=== PATIENT | female | born 1970 | race Caucasian/White ===

== ENCOUNTER 2022-05-26 08:15 | Outpatient (RCR) | payer BC, SELFPAY ==
--- NOTE | 2022-04-29 15:01 | PTOPEVAL1 ---
Assessment and note entered by Natalie Cornell, PT, DPT Evaluation Information Assessment Status Evaluation Diagnosis R knee pain Onset ~1 month Subjective Information Pt states she is training for a half marathon. She states she was running when it felt like her leg was getting tight like usual. She states she did the stretches that normally help and these did nothing to help. She states a day or two after her run she was treating it with RICE, and it is getting progressively worse. She states now it is swelling so much that it is being difficulty to bend. She states it feels like her whole knee is full of fluid. She states she has tried oral steroid from her doctor, a compression sleeve, rest, and ice, not of these help the swelling or pain. She also reports a burning sensation. She states the swelling and pain is getting progressively worse. Reported Pain Level Pain Score 1: Self Report, 10 at worst Assessment PT Clinical Summary Isa presents to therapy today for her initial evaluation with a diagnosis of R knee pain. Today she demonstrates decreased active and passive ROM in both flexion and extension, limited d/t tightness reportedly from the swelling. Knee special tests were negative this date but these are limited by the swelling. She reports most of her pain with flexion and extension but when she relaxes her leg mid way between these positions it feels okay. She has decreased knee flexion during swing, and decreased knee extension during terminal swing with ambulation. Skilled physical therapy services are indicated to address swelling , pain, improve ROM, improve strength, to normalize gait, and to return to baseline function . Plan of Care Interventions Electrical Stimulation,Gait Training,Hot Pack/Cold Pack,Manual Therapy,Neuro Re-education,Patient/ Caregiver Educati,Therapeutic Activities, Therapeutic Exercise,Ultrasound PT Services Indicated Yes Treatment Frequency and 1x/wk for 4 wks Duration These treatments will address the objective and functional deficits as defined above. The patient will be advanced safely and appropriately in order for the patient to progress towards his/her prior level of function. Additional exercises will be introduced and as well as a comprehensive home exercise program upon discharge, if needed, ?to ensure carryover of functional gains achieved in the clin
--- NOTE | 2022-05-08 08:58 | PCPTNOTE ---
Patient called & cancelled scheduled appointment this date due to scheduling conflicts.
--- NOTE | 2022-07-15 09:41 | PTOPDC ---
Assessment and note entered by Natalie Cornell, PT, DPT Evaluation Information Assessment Status Discharge - Pt Not Present Diagnosis R knee pain Onset ~1 month Subjective Information Called patient to follow up. Pt states d/t poor insurance coverage as well as having knee surgery in August she would like to be done with therapy at this time. Assessment PT Clinical Summary Isa has completed 6 visits of therapy from 04/29 to 05/26/22. She will be discharged at this time. If she needs to return at a later time, she will need a new order. Plan of Care Treatment Frequency and to be discharged Duration
== END 2022-07-15 16:00 | disposition home or self-care (01) ==
LOC: ANHGOSHPT 08:15
PROVIDERS: PCP Internal Medicine; Visit Provider Nurse Practitioner
DX: M25.561 Pain in right knee (principal); M77.8 Other enthesopathies, not elsewhere classified
CPT/HCPCS: 97110; 97112; 97140; 97161; 97530

== ENCOUNTER 2022-07-20 10:47 | Outpatient (CLI) | payer BC, SELFPAY ==
--- NOTE | 2022-07-20 11:34 | ECG_ITS ---
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
[2022-07-20 11:56] LABS: Basophils Absolute Auto 0.1 K/mm3 (0.0-0.1); Basophils Percent Auto 1.7 % (0.2-1.2); Eosinophils Absolute Auto 0.1 K/mm3 (0-0.3); Eosinophils Percent Auto 2.5 % (0-4.4); Hematocrit 41.4 % (37.0-47.0); Hemoglobin 13.9 g/dL (12.0-15.0); Immature Granulocyte Absolute 0.01 K/mm3 (0.00-0.031); Immature Granulocyte Percent A 0.2 % (0-0.5); Lymphocytes Absolute Auto 1.32 K/mm3 (0.9-3.2); Lymphocytes Percent Auto 32.7 % (18.3-44.2); Mean Corpuscular HGB Conc 33.6 g/dl (32-36); Mean Corpuscular Hemoglobin 29.6 pg (26-34); Mean Corpuscular Volume 88.1 fl (80-100); Mean Platelet Volume 10.2 fl (7.4-10.4); Monocytes Absolute Auto 0.4 K/mm3 (0.1-0.6); Monocytes Percent Auto 10.9 % (2.6-8.5); Neutrophils Absolute Auto 2.1 K/mm3 (1.3-6.7); Platelet Count Result 252 k/mm3 (150-375); Red Cell Distribution Width 12.4 % (11.5-14.5)
== END 2022-07-20 10:48 | disposition home or self-care (01) ==
LOC: ANHSURGERY 10:52
PROVIDERS: PCP Internal Medicine; Visit Provider Orthopaedic Surgery
DX: Z01.818 Encounter for other preprocedural examination (principal); M17.11 Unilateral primary osteoarthritis, right knee
CPT/HCPCS: 36415; 85025; 93005

== ENCOUNTER 2022-08-18 00:30 | Day surgery (SDC) | payer BC, SELFPAY ==
[2022-07-20 11:00] VITALS: BP 112/79; PULSE 68; RESP 16; TEMP 36.4; O2SAT 100; BMI 29.8
--- NOTE | 2022-07-20 11:10 | PC.NURSE ---
Report to the Outpatient Waiting Room, entrance under the green pavilion located off [facility], at time __8:30AM on date ___08/18/22____. Planned Procedure Time: __10:30AM . Time changes happen often and if your time is changed the preop area will call you the afternoon before. - You and your visitor will be asked to self-screen and do not enter if you have any COVID symptoms. - Only one visitor is requested with a max of two and NO children visitors are allowed at this time. - The patient visitor may be requested to leave or wait in car when not with patient due to distancing restrictions. - A mask is optional within the hospital. Patients may have clear liquids (water, carbonated beverages, clear teas, apple juice) until 3 hours prior to surgery with a maximum of 20 ounces. - No food from midnight until time of surgery Take the following medications with a SIP of water the morning of surgery: ____NONE Medications to discontinue per physician ___HOLD DICLOFENAC/ALL NSAIDS 7 DAYS PRE-OP Date to take last dose____08/11/22 Please no make-up, nail nepali, hairspray, perfume, deodorant, or body powder the day of surgery. No jewelry (including any body piercings) or valuables the day of surgery, leave them at home. Please take a shower or bath the night before, or the morning of, surgery with an antibacterial soap. Wear comfortable, loose fitting clothing. Children are encouraged to wear pajamas. - Jewelry must be removed prior to entering the operating room. Rings and piercings that are not removed may be cut off. - The hospital will not accept responsibility for valuables. - Please leave all valuables, including medications, at home the day of surgery. If you are going home after surgery, a licensed wedding transportation driver must drive you home. - NO public transportation without another adult if you receive anesthesia. - We recommend that an adult stay with you for 24 hours following discharge. - We also recommend that you do not drive, make important decision, drink alcoholic beverages, or take any drugs that were not prescribed by your health care provider for at least 24 hours after your discharge time. Follow any additional instructions given to you from your surgeon. If you or anyone in your household have experienced Covid symptoms in the past week, please notify your surgeon or the nurse liaison at the phone number below for possible testing. Telephone instructions given to _PATIENT_and asked if any additional questions and then verbalized understanding. Patient advised to call surgeon office or pre surgery nurse liaison [phone] if any additional questions.
[2022-08-18] VITALS (11 sets, daily range): BP systolic 119–152; BP diastolic 70–90; PULSE 61–104; RESP 12–20; TEMP 36.5–37.7; O2SAT 99–100
--- NOTE | ~2022-08-18 | XR_ITS ---
EXAMINATION: XR knee RT 2V DATE: 08/18/2022 12:49 INDICATION: Partial right knee arthroplasty. Postop. TECHNIQUE: 2 views of right knee were obtained. COMPARISON: None. FINDINGS: There is a medial compartment arthroplasty in near-anatomic alignment. No fracture. There i s mild osteoarthritis of the lateral and patellofemoral compartments characterized by tiny osteophyte s without joint space narrowing. There is a small knee joint effusion. There is gas in the soft tissu es, consistent with recent surgery. IMPRESSION: 1. Medial compartment arthroplasty in near-anatomic alignment. Reviewed, dictated and finalized at location A. 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
[2022-08-18] MEDS: TRANEXAMIC ACID 1,000MG/ISO100 1,000 MG/100 ML BAG 200 MG IVPB (09:00)
[2022-08-18] MEDS: ACETAMINOPHEN 500 MG TABLET 1000 MG PO (09:00)
[2022-08-18] MEDS: LACTATED RINGERS 1,000 ML 30 ML IV CONT ×2 (09:30→12:35)
--- NOTE | 2022-08-18 09:58 | WPDANESEPPF ---
Anes - Initial Pre Proc Eval Procedure: Operation Date: 08/18/22 10:30 Proposed Procedures p Right Partial Knee Arthroplasty - Evgeny Mancuso MD Date/Time: 08/18/22 09:58 Surgeon: Evgeny Mancuso MD Pre Op Diagnosis: right knee arthritis Patient Data Age: 52 Gender: F Height: 1.63 m Weight: 73.2 kg Last Vital Signs Temp 36.5 C 08/18/22 09:05 Pulse 81 08/18/22 09:05 Resp 14 08/18/22 09:05 BP 119/75 08/18/22 09:05 Pulse Ox 100 08/18/22 09:05 O2 Del Method Room Air 08/18/22 09:05 Allergies Allergy/AdvReac Type Severity Reaction Status Date / Time No Known Allergies Allergy Verified 08/18/22 09:16 Home Medications Medication Instructions Recorded Confirmed Type diclofenac sodium 50 mg 50 mg PO BID #60 tabs 05/08/22 07/20/22 Rx tablet,delayed release semaglutide (weight loss) 0.25 0.25 mg (0.5 mL) subcut WEEKLY #2 07/29/22 07/29/22 Rx mg/0.5 mL subcutaneous pen mL injector (Wegovy) Patient hx anesthesia problems: none Family hx anesthesia problems: none Results Review: All pre-operative results and documents have been reviewed as part of the pre-operative evaluation. [facility] Past Medical History Medical History Elevated liver enzymes Rotator cuff arthropathy of right shoulder Tubal infertility in female Surgical History Surgical History History of partial knee replacement Hx of breast reduction, elective S/p bilateral carpal tunnel release S/P excision of vocal cord nodule Family History Family History Mother Thyroid disease Father Acute myocardial infarction Thyroid disease Other Family history of cardiovascular disease Hypertension Social History Social History Smoking packs per day: 0.2 Smoking cigarettes per day: 4.0 Years smoked: 3 Smoking pack-years: 0.60 Smoking status: Former smoker Tobacco type: cigarettes Smoking end date: 01/09/94 Alcohol intake: current Drinks per week: 2 Substance use: never Lack of Transportation: No Lack of Food: Never True Concerned About Future Housing: No Difficulty Paying Gas/Electric Bills: No Difficulty Paying for Meds: No Currently Unemployed: No Education: Trade/Vocational Certificate Difficulty w/ Childcare or Family Care: No Living arrangements: with family Additional living arrangements comments: [facility]USB Spiritual care concerns: No Anes - Eval Final PreProcedure Day of Procedure 08/18/22 09:58 Patient weight: overweight Heart: regular rate and rhythm Lungs: clear to auscultation Airway: Mallampati scale class II Neurological: alert and oriented Last oral intake: >/= 8 hours ASA classification: II Emergent: no Anesthetic plan: proceed Anesthesia type and monitoring: general LMA and standard monitoring Results Review: All pre-operative results and documents have been reviewed as part of the pre-operative evaluation. Informed Consent: The patient's anesthetic plan and its attendant risks and benefits were discussed with the patient/family/POA. Questions were solicited and answers provided to the satisfaction of the patient/family/POA.
--- NOTE | 2022-08-18 10:15 | WPDHPUPDATE1 ---
History and Physical Update Update Date/Time: 08/18/22 10:15 History and Physical has been reviewed, including an updated exam of the patient. There are NO changes in the patient's condition. Risks, benefits, and alternatives have been discussed and questions answered. Patient agrees to proceed with procedure.
[2022-08-18] MEDS: ceFAZolin 2 GM/D5W 50 ML 2 GM/50 ML BAG IVPB (10:35)
[2022-08-18] MEDS: HYDROmorphone HCL INJ (*CRX) 1 MG/ML SYR 0.5 MG IV PUSH ×4 (12:47→13:16)
[2022-08-18] MEDS: oxyCODONE HCL (*CRX) 5 MG TAB IR PO (14:02)
[2022-08-18] MEDS: ONDANSETRON INJ 4 MG/2 ML VIAL IV PUSH (15:10)
--- NOTE | 2022-08-18 15:18 | W.PM.PROC2 ---
Procedure Note - Detailed Date of Procedure 08/18/22 Pre-op Diagnosis Medial compartment arthritis, right knee. Post-op Diagnosis Same Procedure Performed Partial knee arthroplasty, right knee, medial compartment. Surgeon Evgeny Mancuso MD Forming Tube Selector Dary Martel PA-C Anesthesia General Findings ACL intact. Good bone quality. Significant medial compartment degeneration to bone. Moderate synovitis medially. Description of Procedure The patient was given a general anesthetic. Preoperative antibiotics were given. The knee was prepped and draped in the usual sterile fashion. A longitudinal incision was created along the medial aspect of the patellar tendon. A minimally invasive optimized mid vastus approach was completed. No medial release was taken. The external alignment guide was used to cut the tibia with anatomic posterior slope. A 4 millimeter resection was taken. The spacer block technique was utilized to measure flexion and extension gaps after the osteophytes were removed. The difference was used to calculate the distal resection. The distal cutting block was utilized to cut the distal femur. The AP and chamfer block was utilized for this last cuts. The femur and tibia were sized. Range of motion and gap balancing was assessed. This was tested with the 1.5 millimeter spacer. The bony surfaces were cleaned with lavaged. Lug holes were drilled. The real components were cemented into position. Excess cement was carefully removed. The tourniquet was released. Meticulous hemostasis was maintained. The wound was closed with interrupted 1 Vicryl suture followed by a running 0 Quill suture and 2-0 Quill suture. Steri-Strips are placed in the skin the patient was extubated and brought to recovery room in stable condition. There were no complications. Physician syrup mixer assistant, Dary Martel PA-C, required for surgery; including patient positioning, draping, tissue retraction, maintaining instrument position, wound closure, and dressing placement. Implants [employer] PKR system femur size 2, tibia size 3, 8mm polyethylene insert . One batch Simplex antibiotic cement. Estimated Blood Loss 20 Drains No Complications No immediate complications Condition Stable Disposition PACU [facility] Billing Surgery - Charge Forward: Surgery Billing
== END 2022-08-18 15:38 | disposition home or self-care (01) ==
PROVIDERS: PCP Internal Medicine; Visit Provider Orthopaedic Surgery
PROC: (CPT 27446; principal; 2022-08-18 10:30)
DX: M17.11 Unilateral primary osteoarthritis, right knee (principal); M65.861 Other synovitis and tenosynovitis, right lower leg; Z79.899 Other long term (current) drug therapy; Z87.891 Personal history of nicotine dependence
CPT/HCPCS: 27446; 73560; 97110; 97161; A9270; C1713; C1776; J0171; J0690; J1100; J1170; J1885; J2250; J2270; J2405; J2704; J2795; J3010; J7120

== ENCOUNTER 2022-09-22 08:00 | Outpatient (RCR) | payer BC, SELFPAY ==
--- NOTE | 2022-08-25 10:15 | PTOPEVAL1 ---
Assessment and note entered by Natalie Cornell, PT, DPT Evaluation Information Assessment Status Evaluation Diagnosis R partial medial knee replacement Onset 08/18/22 Subjective Information Pt states she plans on going back to work at the end of next week. Pt states her pain has been well controlled since surgery. Reported Pain Level Pain Score 0: Self Report Assessment PT Clinical Summary Nicole Moss presents to therapy today for her initial evaluation following a R partial kne replacement on 08/18/22. Today she reports well controlled pain and has weened herself to walking with a cane. She was educated today in proper use of cane with ambulation as well as stairs. Today she demonstrates active flexion to 94 deg and extension to lacking 5 deg. She was instructed in a HEP this date. Skilled physical therapy services are indicated to progress ROM and strength, to decrease swelling, to improve function, and to return to baseline mobility without limitations. Plan of Care Interventions Electrical Stimulation,Gait Training,Hot Pack/Cold Pack,Manual Therapy,Neuro Re-education,Patient/ Caregiver Educati,Therapeutic Activities, Therapeutic Exercise PT Services Indicated Yes Treatment Frequency and 2x/ wk for 4 wks Duration These treatments will address the objective and functional deficits as defined above. The patient will be advanced safely and appropriately in order for the patient to progress towards his/her prior level of function. Additional exercises will be introduced and as well as a comprehensive home exercise program upon discharge, if needed, ?to ensure carryover of functional gains achieved in the clinic. This treatment plan has been reviewed and agreement upon by the patient.
--- NOTE | 2022-09-22 08:50 | PTOPDC ---
Assessment and note entered by Natalie Cornell, PT, DPT Evaluation Information Assessment Status Evaluation Diagnosis R partial medial knee replacement Onset 08/18/22 Subjective Information Pt states things are going really well. She states the swelling in the only thing still bother her. She states her knee felt hot last night but she had also just left agility class with her dog. Pt went to a circuit exercise class last week and just modified it to meet her needs. Pt reports 80% improvement in overall symptoms, she states she has to try not to over do it when she feels good. Reported Pain Level Pain Score 0: Self Report Assessment PT Clinical Summary Isa presents to therapy today for her progress report following 8 visits of skilled therapy to treat her partial knee replacement on 08/18/22. Today she demonstrates active ROM from 0-105 and passive ROM from 0-115. She is a little more swollen then usual today, she is normally able to reach ~110 actively. She reports no pain or limitations at time. She has met or progressed well towards her therapy goals. She was instructed on progression with returning to activities today. She will be discharged at this time. Plan of Care Interventions Electrical Stimulation,Gait Training,Hot Pack/Cold Pack,Manual Therapy,Neuro Re-education,Patient/ Caregiver Educati,Therapeutic Activities, Therapeutic Exercise PT Services Indicated No Treatment Frequency and to be discharged Duration
== END 2022-09-22 11:09 | disposition home or self-care (01) ==
LOC: ANHGOSHPT 08:00
PROVIDERS: PCP Internal Medicine; Visit Provider Physician Assistant Surgical
DX: Z47.1 Aftercare following joint replacement surgery (principal); M17.11 Unilateral primary osteoarthritis, right knee; Z96.651 Presence of right artificial knee joint
CPT/HCPCS: 97014; 97110; 97112; 97140; 97161; 97530; G0283

== ENCOUNTER → 2023-07-09 10:24 | Outpatient (CLI) | payer BC, SELFPAY ==
--- NOTE | ~2023-07-09 | US_ITS ---
EXAMINATION: US soft tissue chest DATE: 07/09/2023 10:45 INDICATION: Lump at the anterior mid chest TECHNIQUE: Multiple grayscale and Doppler ultrasound images of the presternal region of the chest wer e obtained. COMPARISON: None FINDINGS: There is a 9 x 9 x 6 mm ovoid complex cystic lesion which is anechoic with a few tiny internal echoge dio foci with posterior acoustic enhancement. There is a thin hypoechoic tract extending from the les ion to the skin surface should be most consistent with an epidermoid cyst. No internal vascular flow or surrounding hyperemia on color Doppler. IMPRESSION: 1. Palpable lump of concern corresponds to a 9 mm likely epidermoid cyst. Reviewed, dictated and finalized at location A. NORMAL INVESTIGATOR
== END ==
PROVIDERS: PCP Nurse Practitioner; Visit Provider Nurse Practitioner
DX: R22.9 Localized swelling, mass and lump, unspecified (principal)
CPT/HCPCS: 76604

== ENCOUNTER → 2023-08-04 15:42 | Outpatient (REF) | payer BC, SELFPAY | LOC: ANHLAB 15:42 | PROVIDERS: PCP Nurse Practitioner; Visit Provider Plastic Surgery | DX: L72.0 Epidermal cyst (principal) | CPT/HCPCS: 88305 ==